=== PATIENT | male | born 1955 | race Native Hawaiian/Other Pacific Islander ===

== ENCOUNTER 2018-09-27 20:51 | Outpatient (CLI) | payer OTHER ==
[~2018-09-27 20:51] MED LIST: ACID REDUCER150 M1 PO; ASPIRIN PO; BISCOLAX10 MG RE; BUSP15TAB2 PO; CARBAMAZEPIN200 M1 PO; CHLO25IN INJ; CHLO50TA22 PO; DIPH50IN INJ; DOCU SOFT100 MG PO; ESCITALOPRAM5 MG PO; FLEET ENEMA RE; FURO20TA67 PO; LIPITOR10 MG PO; MAGNSUS68 PO; MOBIC7.5 M1 PO; PROPRANOLOL10 MG PO; REMERON SOLTAB15 MG PO; SEROQUEL50 MG PO; TYLENOL325 MG PO
[2018-10-03] MEDS ORDERED: REMERON30 MG PO (21:40)
[2018-10-03] MEDS ORDERED: PANTOPRAZOLE 40MG TA PO (21:44)
[2018-10-03] MEDS ORDERED: TRAZODONE HYDRO50 MG PO (21:52)
[2018-10-10] MEDS ORDERED: REMERON30 MG PO (09:17)
[2018-10-10] MEDS ORDERED: LIPITOR10 MG PO (09:19)
[2018-10-10] MEDS ORDERED: CHLO50TA22 PO (09:19)
[2018-10-10] MEDS ORDERED: BUSP15TAB2 PO (09:19)
[2018-10-10] MEDS ORDERED: CARBAMAZEPIN200 M1 PO (09:19)
[2018-10-10] MEDS ORDERED: BISCOLAX10 MG RE (09:19)
[2018-10-10] MEDS ORDERED: ASPIRIN PO (09:19)
[2018-10-10] MEDS ORDERED: ESCITALOPRAM5 MG PO (09:20)
[2018-10-10] MEDS ORDERED: DOCU SOFT100 MG PO (09:20)
[2018-10-10] MEDS ORDERED: DIPH50IN INJ (09:20)
[2018-10-10] MEDS ORDERED: PROPRANOLOL10 MG PO (09:21)
[2018-10-10] MEDS ORDERED: MAGNSUS68 PO (09:21)
[2018-10-10] MEDS ORDERED: PANTOPRAZOLE 40MG TA PO (09:21)
[2018-10-10] MEDS ORDERED: ACID REDUCER150 M1 PO (09:21)
[2018-10-10] MEDS ORDERED: TRAZODONE HYDRO50 MG PO (09:21)
[2018-10-10] MEDS ORDERED: OLANZAPINE10 MG PO (09:22)
== END 2018-09-27 22:17 | disposition short-term general hospital (02) ==
LOC: AMB 20:51
DX: F31.64 Bipolar disorder, current episode mixed, severe, with psychotic features (principal); K28.4 Chronic or unspecified gastrojejunal ulcer with hemorrhage; J18.8 Other pneumonia, unspecified organism; F10.27 Alcohol dependence with alcohol-induced persisting dementia; F10.21 Alcohol dependence, in remission; E78.49 Other hyperlipidemia; I10 Essential (primary) hypertension; Z86.73 Personal history of transient ischemic attack (TIA), and cerebral infarction without residual deficits; K21.9 Gastro-esophageal reflux disease without esophagitis; I95.89 Other hypotension; D64.89 Other specified anemias
CPT/HCPCS: A0425; A0429